=== PATIENT | female | born 1990 | race Caucasian/White ===

== ENCOUNTER 2017-06-06 11:48 | Observation (INO) | payer OTHER ==
[~2017-06-06] VITALS: Ht 175.3 cm; Wt 113.6 kg
[~2017-06-06 11:48] MED LIST: KEFLEX500 MG PO; Macrobid PO; Motrin PO; PRENATAL MULTI1 EAC2 PO; Percocet 5/325,Endoc PO; Prefera-OB Plus DHA PO; SEASONIQUE 01 TABLET PO; VALTREX50 MG/ML PO; VICODIN,LORT1 TABLET PO; ZOFRAN4 MG PO; ZOLOFT50 MG PO
[2017-06-06] MEDS ORDERED: DELTASONE20 M1 PO (16:08)
[2017-06-06] MEDS ORDERED: ASHLYNA 0.15-01 EACH PO (16:08)
[2017-06-06] MEDS ORDERED: VENTOLIN HFA18 GM IH (16:08)
[2017-06-06 16:27] LABS: HEMATOCRIT 35.4 % (36.0-46.0); MCH 30.1 PG (29.0-34.0); MCHC 33.1 G/DL (30.0-36.0); MEAN PLAT.VOLUME 10.4 uM^3 (9.5-12.4); PLATELET COUNT 193 K/uL (156-360); RBC DIS.WIDTH-CV 13.2 % (11.8-14.6); RBC DIS.WIDTH-SD 44.1 % (39-53); RED BLOOD COUNT 3.89 M/uL (3.80-5.20)
[2017-06-06 16:36] LABS: CHLORIDE 108 mEq/L (99-109); POTASSIUM 3.5 mEq/L (3.7-5.4); SODIUM 142 mEq/L (136-147)
[2017-06-06 16:37] LABS: GLUCOSE 95 mg/dL (70-99)
[2017-06-06 16:39] LABS: ANION GAP 9 MEQ/L (2-14)
[2017-06-06 16:41] LABS: GFR ESTIMATE (CALCULATED) > 59 mL/min/
[2017-06-06 16:42] LABS: UREA NITROGEN (BUN) 7 mg/dL (9-23)
[2017-06-06 17:30] VITALS: BP 118/56
[2017-06-06 19:30] VITALS: BP 105/58
[2017-06-06 23:31] VITALS: BP 185/72
[2017-06-07 03:50] VITALS: BP 107/56
[2017-06-07 09:34] VITALS: BP 132/74
[2017-06-07] MEDS ORDERED: NICOTINE PATCH1 EAC1 TD (11:17)
[2017-06-07] MEDS ORDERED: AZITHROMYCIN500 M1 PO (11:17)
[2017-06-07] MEDS ORDERED: ADVAIR HFA120 INHALA IH (11:18)
[2017-06-07] MEDS ORDERED: BENZONATATE100 MG PO (11:18)
[2017-06-07] MEDS ORDERED: DELTASONE20 M1 PO (11:19)
== END 2017-06-07 12:54 | disposition home or self-care (01) ==
LOC: EME 11:48 → EDOF 16:12 → ENRESERV 16:14 → 5WEST 17:09 → ENPENDDIS 06-07 → 5WEST 06-07 12:54
PROVIDERS: Emergency Medicine
DX: J45.901 Unspecified asthma with (acute) exacerbation (principal); Z86.19 Personal history of other infectious and parasitic diseases; F17.210 Nicotine dependence, cigarettes, uncomplicated; Z91.030 Bee allergy status; Z91.018 Allergy to other foods
CPT/HCPCS: 71020; 80048; 85027; 93005; 94640; 94640 76; 94760; 99202; 99281; 99285; G0378; J1644; J2405; J3475; J7030; J7509; J7644

== ENCOUNTER 2017-09-04 20:44 | Emergency (ER) | payer OTHER ==
[~2017-09-04] VITALS: Ht 177.8 cm; Wt 136.1 kg
[~2017-09-04 20:44] MED LIST changes: +ADVAIR HFA120 INHALA IH; +ASHLYNA 0.15-01 EACH PO; +AZITHROMYCIN500 M1 PO; +BENZONATATE100 MG PO; +DELTASONE20 M1 PO; +NICOTINE PATCH1 EAC1 TD; +VENTOLIN HFA18 GM IH
[2017-09-04] MEDS ORDERED: DICLEGIS DR 101 EACH PO (22:40)
[2017-09-04 23:35] LABS: ADD MIUA? YES; BILIRUBIN NEGATIVE; BLOOD NEGATIVE; COLOR YELLOW ((YELLOW)); GLUCOSE (STRIP) NEGATIVE; KETONES 20; LEUKOCYTES LARGE; NITRITE NEGATIVE; PROTEIN (STRIP) 30; SPECIFIC GRAVITY 1.028 (1.000-1.030); UROBILINOGEN 0.2 MG/DL (0.2-1.0)
[2017-09-04 23:40] LABS: BACTERIA 2+ /HPF; EPITHELIAL CELLS 1+ /HPF; MUCUS 1+ /LPF
[2017-09-05] MEDS ORDERED: AUGMENTIN875 MG PO (00:24)
[2017-09-05 00:39] VITALS: BP 107/62
== END 2017-09-05 00:40 | disposition home or self-care (01) ==
LOC: EME 20:44
PROVIDERS: Physician Assistant
DX: O99.511 Diseases of the respiratory system complicating pregnancy, first trimester (principal); J45.901 Unspecified asthma with (acute) exacerbation; O23.41 Unspecified infection of urinary tract in pregnancy, first trimester; O21.9 Vomiting of pregnancy, unspecified; Z3A.09 9 weeks gestation of pregnancy; O99.331 Smoking (tobacco) complicating pregnancy, first trimester; F17.200 Nicotine dependence, unspecified, uncomplicated
CPT/HCPCS: 76801; 81003; 84702; 87086; 94640; 99281; 99284; J1100

== ENCOUNTER 2017-09-20 21:56 | Emergency (ER) | payer OTHER ==
[~2017-09-20] VITALS: Ht 177.8 cm; Wt 136.6 kg
[~2017-09-20 21:56] MED LIST changes: +AUGMENTIN875 MG PO; +DICLEGIS DR 101 EACH PO
[2017-09-20 22:48] LABS: HEMATOCRIT 37.1 % (36.0-46.0); MCH 30.2 PG (29.0-34.0); MCHC 33.4 G/DL (30.0-36.0); MCV 90.5 FL (83-99); MEAN PLAT.VOLUME 10.5 uM^3 (9.5-12.4); PLATELET COUNT 215 K/uL (156-360); RBC DIS.WIDTH-CV 13.5 % (11.8-14.6); RBC DIS.WIDTH-SD 44.5 % (39-53)
[2017-09-20 22:56] LABS: CHLORIDE 109 mEq/L (99-109); POTASSIUM 3.4 mEq/L (3.7-5.4); SODIUM 141 mEq/L (136-147)
[2017-09-20 22:58] LABS: GLUCOSE 97 mg/dL (70-99)
[2017-09-20 22:59] LABS: ANION GAP 9 MEQ/L (2-14)
[2017-09-20 23:00] LABS: TOTAL BILIRUBIN 0.3 mg/dL (0.0-1.0)
[2017-09-20 23:01] LABS: ALKALINE PHOSPHATASE 54 IU/L (3-129)
[2017-09-20 23:02] LABS: GFR ESTIMATE (CALCULATED) > 59 mL/min/
[2017-09-20 23:03] LABS: UREA NITROGEN (BUN) 10 mg/dL (9-23)
[2017-09-21 00:41] LABS: ADD MIUA? YES; BILIRUBIN NEGATIVE; BLOOD LARGE; COLOR AMBER ((YELLOW)); GLUCOSE (STRIP) NEGATIVE; KETONES NEGATIVE; LEUKOCYTES LARGE; NITRITE NEGATIVE; PROTEIN (STRIP) 100; SPECIFIC GRAVITY 1.032 (1.000-1.030)
[2017-09-21 01:02] LABS: EPITHELIAL CELLS 1+ /HPF; RED BLOOD CELLS 40-50 /HPF (0-5); WHITE BLOOD CELLS 20-30 /HPF (0-5)
[2017-09-21 01:03] LABS: BACTERIA 3+ /HPF; CASTS NONE SEEN /LPF; CRYSTALS NONE SEEN; MUCUS NONE SEEN /LPF; UCUL ADDED? YES
[2017-09-21] MEDS ORDERED: KEFLEX500 MG PO (01:51)
[2017-09-21] MEDS ORDERED: NORCO 5/3251 TABLET PO (01:54)
[2017-09-21 02:07] VITALS: BP 98/71
== END 2017-09-21 02:12 | disposition home or self-care (01) ==
LOC: EME 21:56
DX: N39.0 Urinary tract infection, site not specified (principal); N93.9 Abnormal uterine and vaginal bleeding, unspecified; F17.200 Nicotine dependence, unspecified, uncomplicated; J45.909 Unspecified asthma, uncomplicated
CPT/HCPCS: 76856; 80053; 81003; 84702; 85027; 86900; 86901; 87086; 99281; 99284

== ENCOUNTER 2018-02-08 18:07 | Emergency (ER) | payer OTHER ==
[~2018-02-08] VITALS: Ht 177.8 cm; Wt 132.7 kg
[~2018-02-08 18:07] MED LIST changes: +NORCO 5/3251 TABLET PO
[2018-02-08 18:39] LABS: HEMATOCRIT 38.7 % (36.0-46.0); HEMOGLOBIN 12.9 G/DL (11.9-15.5); MCH 29.3 PG (29.0-34.0); MCHC 33.3 G/DL (30.0-36.0); PLATELET COUNT 224 K/uL (156-360); RBC DIS.WIDTH-CV 13.2 % (11.8-14.6); RBC DIS.WIDTH-SD 42.7 % (39-53); WHITE BLOOD COUNT 7.6 K/uL (4.1-10.2)
[2018-02-08 18:48] LABS: CHLORIDE 108 mEq/L (99-109); POTASSIUM 4.4 mEq/L (3.7-5.4); SODIUM 145 mEq/L (136-147)
[2018-02-08 18:50] LABS: GLUCOSE 96 mg/dL (70-99)
[2018-02-08 18:54] LABS: CREATININE 0.8 mg/dL (0.6-1.3); GFR ESTIMATE (CALCULATED) > 59 mL/min/
[2018-02-08 18:55] LABS: UREA NITROGEN (BUN) 8 mg/dL (9-23)
[2018-02-08 18:57] LABS: APPEARANCE SL.HAZY ((CLEAR)); BILIRUBIN NEGATIVE; BLOOD NEGATIVE; COLOR YELLOW ((YELLOW)); GLUCOSE (STRIP) NEGATIVE; KETONES NEGATIVE; LEUKOCYTES LARGE; NITRITE NEGATIVE; PROTEIN (STRIP) 30; SPECIFIC GRAVITY 1.028 (1.000-1.030)
[2018-02-08 19:05] LABS: BACTERIA NONE SEEN /HPF; EPITHELIAL CELLS 2+ /HPF; HYALINE CASTS 0-5 /LPF; MUCUS TRACE /LPF; RED BLOOD CELLS 0-5 /HPF (0-5); UCUL ADDED? NO; WHITE BLOOD CELLS NONE SEEN /HPF (0-5)
[2018-02-08] MEDS ORDERED: ROBAXIN750 MG PO (20:36)
[2018-02-08 20:45] VITALS: BP 112/66
[2018-02-08 20:58] LABS: QUANTITATIVE HCG < 4.0 MIU/ML
== END 2018-02-08 20:47 | disposition home or self-care (01) ==
LOC: EME 18:07
DX: M54.16 Radiculopathy, lumbar region (principal); J45.909 Unspecified asthma, uncomplicated; F17.200 Nicotine dependence, unspecified, uncomplicated
CPT/HCPCS: 80048; 81003; 84702; 85027; 99281; 99283